=== PATIENT | male | born 1955 ===

== ENCOUNTER → 2020-09-03 10:47 | Outpatient (BNVA) | payer MEDICARE, MEDICAID, SELFPAY | PROVIDERS: Visit Provider Urology | DX: R97.20 Elevated prostate specific antigen [PSA] (principal); E29.1 Testicular hypofunction; N48.6 Induration penis plastica; N52.9 Male erectile dysfunction, unspecified; N40.1 Benign prostatic hyperplasia with lower urinary tract symptoms; N13.8 Other obstructive and reflux uropathy; Z88.6 Allergy status to analgesic agent; Z88.5 Allergy status to narcotic agent; Z87.891 Personal history of nicotine dependence; Z12.5 Encounter for screening for malignant neoplasm of prostate | CPT/HCPCS: Q3014 ==

== ENCOUNTER → 2021-03-06 10:21 | Outpatient (BNVA) | payer MEDICARE, MEDICAID, SELFPAY | PROVIDERS: Visit Provider Urology | DX: N48.6 Induration penis plastica (principal); N52.9 Male erectile dysfunction, unspecified; R97.20 Elevated prostate specific antigen [PSA] | CPT/HCPCS: Q3014 ==

== ENCOUNTER → 2021-09-04 08:30 | Outpatient (BNVA) | payer MEDICARE, MEDICAID, SELFPAY | PROVIDERS: Visit Provider Urology | DX: Z13.89 Encounter for screening for other disorder (principal) | CPT/HCPCS: Q3014 ==

== ENCOUNTER 2021-10-02 07:28 | Outpatient (REF) | payer MEDICARE, MEDICAID, SELFPAY ==
[2021-10-02 07:58] VITALS: BP 138/84; PULSE 71; RESP 16; TEMP 36.2; O2SAT 98; BMI 30.1
--- NOTE | 2021-10-02 08:21 | W.PM.OPN ---
Operative Note Operative Note Date of Service: 10/02/21 Narrative: Preoperative diagnosis: Elevated PSA Postoperative diagnosis: Elevated PSA Procedure: 1. transrectal ultrasound measurement of prostate 2. transrectal ultrasound-guided pudendal nerve block 3. transrectal ultrasound-guided prostate biopsy 12 core Surgeon: Dr. Vincenzo Khan Anesthetic: Local Indications for procedure: Elevated PSA - 4.9 on finasteride Procedure: After informed consent was verified, the patient was brought into the procedure area and lay left-hand side down on the table. Patient identity confirmed. Perioperative antibiotics confirmed. Iodine 10cc with Gel was placed per rectum Ultrasound probe was placed per rectum The prostate was measured in 3 dimensions Total volume equals 25 gm There were no cystic structures and no calcifications noted and the prostate was homogeneous in nature A ultrasound-guided pudendal nerve block was performed using 10 cc of 1% lidocaine. 8 cc was placed at the base and 2 cc of the apex. A 12 core biopsy was performed with 6 cores each side. Two cores were taken at the apex, mid and base. Cores were spaced between lateral and medial. He tolerated the procedure well. Was able to ambulate to bathroom after 5 minutes. Printed instructions regarding antibiotic use and common side effects such as low-grade temperature and bleeding were given Pathology: 12 core prostate biopsy.
[2021-10-02 08:30] VITALS: BP 158/72; PULSE 70; RESP 16; O2SAT 98
== END 2021-10-02 07:29 | disposition home or self-care (01) ==
LOC: HO.MS 07:28
PROVIDERS: PCP Internal Medicine; Visit Provider Urology
PROC: (CPT 55700; principal; 2021-10-02 08:00)
DX: C61 Malignant neoplasm of prostate (principal); R97.20 Elevated prostate specific antigen [PSA]
CPT/HCPCS: 55700; 76942; 88305; 88344

== ENCOUNTER → 2021-10-09 10:40 | Outpatient (BNVA) | payer MEDICARE, MEDICAID, SELFPAY | PROVIDERS: PCP Internal Medicine; Visit Provider Urology | DX: C61 Malignant neoplasm of prostate (principal) | CPT/HCPCS: Q3014 ==

== ENCOUNTER → 2021-11-05 12:57 | Outpatient (BNVA) | payer MEDICARE, MEDICAID, SELFPAY | PROVIDERS: PCP Internal Medicine; Visit Provider Urology | DX: C61 Malignant neoplasm of prostate (principal); R39.15 Urgency of urination; N52.9 Male erectile dysfunction, unspecified; N48.6 Induration penis plastica | CPT/HCPCS: 99212 ==

== ENCOUNTER → 2021-11-25 08:15 | Outpatient (BNVA) | payer MEDICARE, MEDICAID, SELFPAY | PROVIDERS: PCP Internal Medicine; Visit Provider Urology | DX: C61 Malignant neoplasm of prostate (principal) | CPT/HCPCS: Q3014 ==

== ENCOUNTER → 2022-01-14 12:05 | Outpatient (BNVA) | payer MEDICARE, MEDICAID, SELFPAY | PROVIDERS: PCP Internal Medicine; Visit Provider Urology | DX: C61 Malignant neoplasm of prostate (principal); N52.9 Male erectile dysfunction, unspecified | CPT/HCPCS: Q3014 ==

== ENCOUNTER → 2022-06-30 15:01 | Outpatient (BNVA) | payer MEDICARE, MEDICAID, SELFPAY | PROVIDERS: PCP Internal Medicine; Visit Provider Urology | DX: C61 Malignant neoplasm of prostate (principal); N52.9 Male erectile dysfunction, unspecified; N48.6 Induration penis plastica | CPT/HCPCS: 99212 ==

== ENCOUNTER 2022-09-25 12:13 | Outpatient (REF) | payer MEDICARE, MEDICAID, SELFPAY | END 2022-09-25 12:14 | disposition home or self-care (01) | LOC: HO.LAB 12:13 | PROVIDERS: PCP Internal Medicine; Visit Provider Urology | DX: C61 Malignant neoplasm of prostate (principal) | CPT/HCPCS: 36415; 84153 ==

== ENCOUNTER 2022-10-02 10:43 | Outpatient (AMB) | payer MEDICARE, MEDICAID, SELFPAY ==
--- NOTE | 2022-10-02 11:22 | A.OFFVIS_ITS ---
Intake Intake Visit Reasons: 3M PSA(TNP)Discuss Error in psa Intake Note: Patient is present for Follow Up Urology Med: Sildenafil Antibiotic Allergy: None Blood Thinner: None Allergies acetaminophen [From Percocet] Allergy (Mild, Verified 02/02/23 08:27) BURNING IN KNEES/THIGHS oxycodone [From Percocet] Allergy (Mild, Verified 02/02/23 08:27) BURNING IN KNEES/THIGHS HPI HPI Comments History of Present Illness Details Paul Doan is a very pleasant male. He is a patient of Dr. Butler. He is seen for the following urologic conditions - Prostate Cancer - Peyronie's disease - erectile dysfunction Three month PSA follow-up Control urination PSA 09/20 TNP Prostate cancer intermediate risk moderate volume disease 09/19 - RALP 04/21 pT2N0 Robotic prostatectomy 04/21 Dr. Garay [facility] Pathology T2 N0 - [place] 3+4, ECG negative Diagnosed by Dr. Khan 09/19 Prostate biopsy for PSA 4.9 on finasteride Histologic type:??Prostatic acinar adenocarcinoma? Histologic grade:??3 + 3 = 6 (Parts C, D, E, F, G, and H), 3 + 4 = 7 (Part L), and 4 + 3 = 7 (Part J). ? [place] score: (list separately for each core if different) ? % of pattern 4:??90% (Part J); 40% (Part L) Tumor quantitation: Number cores positive:??8 Total number of cores:??12 % of tissue involved:??60% (discontinuously; Part C), 20% (discontinuously, Part D), 70% (Part E), 50% (Part F), less than 5% (Part G), 5% (Part H), 30% (Parts J, L)? Periprostatic fat invasion:??Not identified Seminal vesicle invasion:??Not identified Perineural invasion:??Not identified Lymphovascular invasion:??Not identified MRI 11/19 right apical lesion PI-RADS 4 12 mm - no evidence of extracapsular extension, 26gm Erectile dysfunction: Responds to viagra. Symptoms have been present for/since years ago. Medications include(s) Viagra 100 mg which he splits in 2. Current symptoms include trouble sustaining an erection, trouble getting an erection. Also notes he has tiredness with lethargy and lack of strength.. Severity of the symptoms is moderate. Peyronie's Disease: The patient presents for followup up evaluation for penile disorder. Primary complaint is penile curvature, ventrally, to the left, Peyronie's disease - resolved with AVE therapy. The problem has been present 2016 resolved by [address] At this time he experiences partial erections sufficient for penetrative intercourse. [place] has is unaffected. Associated symptoms include penile pain No Prior management includes oral medication, vacuum protocol. Associated conditions history of penile trauma No CAD No diabetes No erectile dysfunction Yes hypertension No peripheral vascular disease No Investigation results penile ultrasound - 10/13 consistent with possible fibrosis at base of right-sided penis PFS Medical History Benign prostatic hyperplasia without lower urinary tract symptoms Elevated PSA Low testosterone Peyronie's disease Testicular failure Surgical History H/O laminectomy History of surgery of liver Family History Father No problems noted. Mother No problems noted. Review of Systems Const Denies chills and Denies fever(s) Card Reports no additional complaints and Denies syncope Resp Denies cough GI Denies abdominal pain and Denies heartburn Reports as per HPI and Denies change in libido Neuro Denies syncope Psych Denies change in libido Endo Denies change in libido Physical Exam Const General: cooperative, healthy appearing, comfortable and no acute distress Orientation/consciousness: patient oriented x3 HEENT Face and sinus: Yes normal facial exam Mouth: moist mucous membranes Neck Neck: Yes normal visual inspection, Yes full ROM and Yes trachea midline Chest Chest palpation & inspection: normal inspection of the chest Resp Effort & Inspection: normal respiratory effort, able to speak in complete sentences and no respiratory distress GI Inspection: Yes normal to inspection Back/Spine/Pelvis Cervical Spine: normal cervical lordosis Thoracic/Lumbar Spine: thoracic and lumbar spine normal to inspection Skin General skin exam: no rashes or lesions noted Neuro General: patient oriented x3, gait normal, tone normal and moves all extremities Extrem General: Yes normal to inspection and Yes capillary refill normal Assessment & Plan Assessment & Plan (1) Prostate cancer: Comment: 09/19 biopsy with multiple core group 3, 04/21 RALP 3+4 JAIME - Code(s): C61 - Malignant neoplasm of prostate Plan Four month follow-up PSA Orders: Orders Prostate Specific Antigen 4 Months C61 - Malignant neoplasm of prostate Patient Instructions: Imaging studies, laboratory and physical exam results were discussed and reviewed in detail. No major barriers to patient understanding were identified. An opportunity to ask questions regarding the treatment plan was provided. All questions were answered. The patient expressed understanding and agreement with the above treatment plan. The patient is aware they should contact our office by phone for worsening of their current condition or the appearance of new urologic symptoms. Compliance is encouraged with any medications and followup testing that is ordered. It is a privilege to participate in the urologic care of your patient. If you have any questions or concerns regarding treatment for the above conditions, or other urologic issues, please do not hesitate to contact me. The office telephone contact is [phone]. This note is constructed using voice recognition software. While every effort has been made to ensure accuracy ocean [employer] intermediary errors may have been included. Yours sincerely, Dr Vincenzo Khan MD, [facility] - Urology Providers of Expert, Compassionate Care for the Genitourinary System Coding Level of Care Code Est Pt Level 3 (99632) Diagnoses Prostate cancer C61
== END 2022-10-02 11:43 | disposition home or self-care (01) ==
LOC: HO.HUSH 10:43
PROVIDERS: PCP Internal Medicine; Visit Provider Urology
DX: C61 Malignant neoplasm of prostate (principal)
CPT/HCPCS: 99213

== ENCOUNTER → 2022-10-02 10:43 | Outpatient (BNVA) | payer MEDICARE, MEDICAID, SELFPAY | PROVIDERS: PCP Internal Medicine; Visit Provider Urology | DX: C61 Malignant neoplasm of prostate (principal) | CPT/HCPCS: 99212 ==

== ENCOUNTER 2023-01-20 10:50 | Outpatient (REF) | payer MEDICARE, MEDICAID, SELFPAY ==
[2023-01-20 12:56] LABS: Prostate Specific Antigen < 0.10 ng/mL (<0.05-4.0)
== END 2023-01-20 10:51 | disposition home or self-care (01) ==
LOC: HO.LAB 10:50
PROVIDERS: PCP Internal Medicine; Visit Provider Urology
DX: Z12.5 Encounter for screening for malignant neoplasm of prostate (principal); C61 Malignant neoplasm of prostate
CPT/HCPCS: 36415; 84153

== ENCOUNTER 2023-02-02 08:24 | Outpatient (AMB) | payer MEDICARE, MEDICAID, SELFPAY ==
--- NOTE | 2023-02-02 08:25 | A.OFFVIS_ITS ---
Intake Intake Visit Reasons: PSA Follow Up(set) Intake Note: Patient is present for Telephone PSA Urology Med: Sildenafil Antibiotic Allergy: None Blood Thinner: None Pharmacy: [facility] Allergies acetaminophen [From Percocet] Allergy (Mild, Verified 02/02/23 08:27) BURNING IN KNEES/THIGHS oxycodone [From Percocet] Allergy (Mild, Verified 02/02/23 08:27) BURNING IN KNEES/THIGHS Medication List - Last Reconciled 02/02/23 by Vincenzo Khan MD amlodipine 5 mg PO DAILY dorzolamide-timolol 22.3-6.8 mg/mL mL ophthalmic (eye) sildenafil 100 mg PO DAILY PRN 30 days sildenafil (pulm.hypertension) 0 mg PO HPI HPI Comments History of Present Illness Details Paul Doan is a very pleasant male. He is a patient of Dr. Butler. He is seen for the following urologic conditions - Prostate Cancer - Peyronie's disease - erectile dysfunction Telemedicine Evaluation 15 min Consultation [employer] attempted Three month PSA follow-up PSA 01/20 <0.1 Continue 3 month follow-up for 2 years Prostate cancer intermediate risk moderate volume disease 09/19 - RALP 04/21 pT2N0 Robotic prostatectomy 04/21 Dr. Garay [facility] Pathology T2 N0 - [place] 3+4, ECG negative Diagnosed by Dr. Khan 09/19 Prostate biopsy for PSA 4.9 on finasteride Histologic type:??Prostatic acinar adenocarcinoma? Histologic grade:??3 + 3 = 6 (Parts C, D, E, F, G, and H), 3 + 4 = 7 (Part L), and 4 + 3 = 7 (Part J). [place] score: (list separately for each core if different), % of pattern 4:??90% (Part J); 40% (Part L) Tumor quantitation: Number cores positive:??8, Total number of cores:??12 % of tissue involved:??60% (discontinuously; Part C), 20% (discontinuously, Part D), 70% (Part E), 50% (Part F), less than 5% (Part G), 5% (Part H), 30% (Parts J, L)? Periprostatic fat invasion:??Not identified Seminal vesicle invasion:??Not identified Perineural invasion:??Not identified Lymphovascular invasion:??Not identified MRI 11/19 right apical lesion PI-RADS 4 12 mm - no evidence of extracapsular extension, 26gm Erectile dysfunction: Responds to viagra. Symptoms have been present for/since years ago. Medications include(s) Viagra 100 mg which he splits in 2. Current symptoms include trouble sustaining an erection, trouble getting an erection. Also notes he has tiredness with lethargy and lack of strength.. Severity of the symptoms is moderate. Peyronie's Disease: The patient presents for followup up evaluation for penile disorder. Primary complaint is penile curvature, ventrally, to the left, Peyronie's disease - resolved with AVE therapy. The problem has been present 2015 resolved by [address] At this time he experiences partial erections sufficient for penetrative intercourse. [place] has is unaffected. Associated symptoms include penile pain No Prior management includes oral medication, vacuum protocol. Associated conditions history of penile trauma No CAD No diabetes No erectile dysfunction Yes hypertension No peripheral vascular disease No Investigation results penile ultrasound - 10/13 consistent with possible fibrosis at base of right-sided penis [facility] Medical History Benign prostatic hyperplasia without lower urinary tract symptoms Elevated PSA Low testosterone Peyronie's disease Testicular failure Surgical History H/O laminectomy History of surgery of liver Family History Father No problems noted. Mother No problems noted. Review of Systems Const All systems reviewed & are unremarkable except as noted in HPI and below Reports no additional complaints Resp Reports no additional complaints GI Reports no additional complaints Reports as per HPI Musc Reports no additional complaints Physical Exam Telemedicine evaluation Appropriate responses Regular breathing rate and rhythm HEENT Head: Yes normal to inspection Ears: hearing grossly normal bilaterally Eyes General: appearance normal, both eyes and all related structures Neck Neck: Yes normal visual inspection Chest Chest palpation & inspection: normal inspection of the chest Resp Effort & Inspection: normal respiratory effort and able to speak in complete sentences Assessment & Plan Assessment & Plan (1) Prostate cancer: Comment: 09/19 biopsy with multiple core group 3, 04/21 RALP 3+4 JAIME - Code(s): C61 - Malignant neoplasm of prostate (2) Erectile dysfunction: Code(s): N52.9 - Male erectile dysfunction, unspecified Plan Three month follow-up PSA Orders: Orders Prostate Specific Antigen 3 Months C61 - Malignant neoplasm of prostate Patient Instructions: Imaging studies, laboratory and physical exam results were discussed and reviewed in detail. No major barriers to patient understanding were identified. An opportunity to ask questions regarding the treatment plan was provided. All questions were answered. The patient expressed understanding and agreement with the above treatment plan. The patient is aware they should contact our office by phone for worsening of their current condition or the appearance of new urologic symptoms. Compliance is encouraged with any medications and followup testing that is ordered. It is a privilege to participate in the urologic care of your patient. If you have any questions or concerns regarding treatment for the above conditions, or other urologic issues, please do not hesitate to contact me. The office telephone contact is [phone]. This note is constructed using voice recognition software. While every effort has been made to ensure accuracy manager voice errors may have been included. Yours sincerely, Dr Vincenzo Khan MD, [facility] - Urology Providers of Expert, Compassionate Care for the Genitourinary System Telehealth Telehealth Location of provider rendering services: practice address Location of patient: address on file Patient Identification confirmed using: Name, : Yes Telehealth method: video Patient verbally consented to treatment: Yes Patient verbally consented to billing insurance company: Yes Patient informed of any privacy concerns related to visit: Yes Coding Level of Care Code Tele Est Pt Level 3 (86540) Diagnoses Prostate cancer C61 Erectile dysfunction N52.9
== END 2023-02-02 08:59 | disposition home or self-care (01) ==
LOC: HO.HUSH 08:24
PROVIDERS: PCP Internal Medicine; Visit Provider Urology
DX: C61 Malignant neoplasm of prostate (principal); N52.9 Male erectile dysfunction, unspecified
CPT/HCPCS: 99213

== ENCOUNTER → 2023-02-02 08:24 | Outpatient (BNVA) | payer MEDICARE, MEDICAID, SELFPAY | PROVIDERS: PCP Internal Medicine; Visit Provider Urology ==

== ENCOUNTER 2023-06-09 10:54 | Outpatient (REF) | payer MEDICARE, MEDICAID, SELFPAY ==
[2023-06-09 13:18] LABS: Prostate Specific Antigen < 0.10 ng/mL (<0.05-4.0)
== END 2023-06-09 10:55 | disposition home or self-care (01) ==
LOC: HO.LAB 10:54
PROVIDERS: PCP Internal Medicine; Visit Provider Urology
DX: C61 Malignant neoplasm of prostate (principal); Z12.5 Encounter for screening for malignant neoplasm of prostate
CPT/HCPCS: 36415; 84153

== ENCOUNTER 2023-07-02 13:40 | Outpatient (AMB) | payer MEDICARE, MEDICAID, SELFPAY ==
--- NOTE | 2023-07-02 14:04 | MHC.OFFVIS ---
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 He is a patient of Dr. Butler. He is seen for the following urologic conditions - Prostate Cancer - Peyronie's disease - erectile dysfunction Prostate cancer surveillance Three month PSA follow-up PSA 01/20 <0.1, 05/22 <0.1 Continue 3 month follow-up for 2 years Ongoing headache with oral PDE5. Information given regarding vacuum pump Prostate cancer intermediate risk moderate volume disease 09/19 - RALP 04/21 pT2N0 grade group 3 Robotic prostatectomy 04/21 Dr. Garay [facility] Pathology T2 N0 - [place] 3+4, ECG negative Diagnosed by Dr. Khan 09/19 Prostate biopsy for PSA 4.9 on finasteride Histologic type:??Prostatic acinar adenocarcinoma? Histologic grade:??3 + 3 = 6 (Parts C, D, E, F, G, and H), 3 + 4 = 7 (Part L), and 4 + 3 = 7 (Part J). [place] score: (list separately for each core if different), % of pattern 4:??90% (Part J); 40% (Part L) Tumor quantitation: Number cores positive:??8, Total number of cores:??12 % of tissue involved:??60% (discontinuously; Part C), 20% (discontinuously, Part D), 70% (Part E), 50% (Part F), less than 5% (Part G), 5% (Part H), 30% (Parts J, L)? Periprostatic fat invasion:??Not identified Seminal vesicle invasion:??Not identified Perineural invasion:??Not identified Lymphovascular invasion:??Not identified MRI 11/19 right apical lesion PI-RADS 4 12 mm - no evidence of extracapsular extension, 26gm Erectile dysfunction: Responds to viagra. Symptoms have been present for/since years ago. Medications include(s) Viagra 100 mg which he splits in 2. Current symptoms include trouble sustaining an erection, trouble getting an erection. Also notes he has tiredness with lethargy and lack of strength.. Severity of the symptoms is moderate. Had headache with both Cialis and Viagra Peyronie's Disease: The patient presents for followup up evaluation for penile disorder. Primary complaint is penile curvature, ventrally, to the left, Peyronie's disease - resolved with AVE therapy. The problem has been present 2015 resolved by [address] At this time he experiences partial erections sufficient for penetrative intercourse. [place] has is unaffected. Associated symptoms include penile pain No Prior management includes oral medication, vacuum protocol. Associated conditions history of penile trauma No CAD No diabetes No erectile dysfunction Yes hypertension No peripheral vascular disease No Investigation results penile ultrasound - 10/13 consistent with possible fibrosis at base of right-sided penis PFSH Medical History Benign prostatic hyperplasia without lower urinary tract symptoms Elevated PSA Low testosterone Peyronie's disease Testicular failure Surgical History H/O laminectomy History of surgery of liver Family History Father No problems noted. Mother No problems noted. Review of Systems Const Denies chills and Denies fever(s) Card Reports no additional complaints and Denies syncope Resp Denies cough GI Denies abdominal pain and Denies heartburn Reports as per HPI and Denies change in libido Neuro Denies syncope Psych Denies change in libido Endo Denies change in libido Physical Exam Const General: cooperative, healthy appearing, comfortable and no acute distress Orientation/consciousness: patient oriented x3 HEENT Face and sinus: Yes normal facial exam Mouth: moist mucous membranes Neck Neck: Yes normal visual inspection, Yes full ROM and Yes trachea midline Chest Chest palpation & inspection: normal inspection of the chest Resp Effort & Inspection: normal respiratory effort, able to speak in complete sentences and no respiratory distress GI Inspection: Yes normal to inspection Back/Spine/Pelvis Cervical Spine: normal cervical lordosis Thoracic/Lumbar Spine: thoracic and lumbar spine normal to inspection Skin General skin exam: no rashes or lesions noted Neuro General: patient oriented x3, gait normal, tone normal and moves all extremities Extrem General: Yes normal to inspection and Yes capillary refill normal Assessment & Plan Assessment & Plan (1) Peyronie's disease: Code(s): N48.6 - Induration penis plastica (2) Prostate cancer: Comment: 09/19 biopsy with multiple core group 3, 04/21 RALP 3+4 JAIME - Code(s): C61 - Malignant neoplasm of prostate (3) Erectile dysfunction: Code(s): N52.9 - Male erectile dysfunction, unspecified Plan Three-month follow-up PSA tele Orders: Orders Prostate Specific Antigen 3 Months C61 - Malignant neoplasm of prostate Patient Instructions: Imaging studies, laboratory and physical exam results were discussed and reviewed in detail. No major barriers to patient understanding were identified. An opportunity to ask questions regarding the treatment plan was provided. All questions were answered. The patient expressed understanding and agreement with the above treatment plan. The patient is aware they should contact our office by phone for worsening of their current condition or the appearance of new urologic symptoms. Compliance is encouraged with any medications and followup testing that is ordered. It is a privilege to participate in the urologic care of your patient. If you have any questions or concerns regarding treatment for the above conditions, or other urologic issues, please do not hesitate to contact me. The office telephone contact is [phone]. This note is constructed using voice recognition software. While every effort has been made to ensure accuracy professor of [employer] studies errors may have been included. Yours sincerely, Dr Vincenzo Khan MD, [facility] - Urology Providers of Expert, Compassionate Care for the Genitourinary System Coding Level of Care Code Est Pt Level 4 (94007) Diagnoses Peyronie's disease N48.6 Prostate cancer C61 Erectile dysfunction N52.9
== END 2023-07-02 14:15 | disposition home or self-care (01) ==
PROVIDERS: PCP Internal Medicine; Visit Provider Urology
DX: N48.6 Induration penis plastica (principal); C61 Malignant neoplasm of prostate; N52.9 Male erectile dysfunction, unspecified
CPT/HCPCS: 99213

== ENCOUNTER → 2023-07-02 13:40 | Outpatient (BNVA) | payer MEDICARE, MEDICAID, SELFPAY | PROVIDERS: PCP Internal Medicine; Visit Provider Urology | DX: N48.6 Induration penis plastica (principal); N52.9 Male erectile dysfunction, unspecified; C61 Malignant neoplasm of prostate | CPT/HCPCS: 99212 ==

== ENCOUNTER 2023-09-15 10:39 | Outpatient (REF) | payer MEDICARE, MEDICAID, SELFPAY ==
[2023-09-15 12:07] LABS: Prostate Specific Antigen < 0.10 ng/mL (<0.05-4.0)
== END 2023-09-15 10:40 | disposition home or self-care (01) ==
LOC: HO.LAB 10:39
PROVIDERS: PCP Internal Medicine; Visit Provider Urology
DX: Z12.5 Encounter for screening for malignant neoplasm of prostate (principal); C61 Malignant neoplasm of prostate
CPT/HCPCS: 36415; 84153

== ENCOUNTER 2023-09-30 11:21 | Outpatient (AMB) | payer MEDICARE, MEDICAID, SELFPAY ==
--- NOTE | 2023-09-30 11:22 | A.OFFVIS_ITS ---
Intake Visit Reasons: 3m/PSA(set) Intake Note: Patient is Present for Telephone Follow Up For Urology Med: Sildenafil Antibiotic Allergy: none Blood Thinner:none Allergies acetaminophen [From Percocet] Allergy (Mild, Verified 07/02/23 14:10) BURNING IN KNEES/THIGHS oxycodone [From Percocet] Allergy (Mild, Verified 07/02/23 14:10) BURNING IN KNEES/THIGHS HPI Comments Details: Paul Doan is a very pleasant male. He is a patient of Dr. Butler. He is seen for the following urologic conditions - Prostate Cancer - Peyronie's disease - erectile dysfunction Prostate cancer surveillance - long-term relationship with patient based on ongoing care of this serious condition Telemedicine Evaluation 15 min Consultation Dodonation Reji Video attempted Discussed PSA results Has not been able to get vacuum pump Will call company for him when we see him in 3 months Three month PSA follow-up PSA 01/20 <0.1, 05/22 <0.1, 09/21 <0.1 Continue 3 month follow-up for 2 years Prostate cancer intermediate risk moderate volume disease 09/19 - RALP 04/21 pT2N0 grade group 3 Robotic prostatectomy 04/21 Dr. Garay [facility] Pathology T2 N0 - Dorie 3+4, ECG negative Diagnosed by Dr. Khan 09/19 Prostate biopsy for PSA 4.9 on finasteride Histologic type:??Prostatic acinar adenocarcinoma? Histologic grade:??3 + 3 = 6 (Parts C, D, E, F, G, and H), 3 + 4 = 7 (Part L), and 4 + 3 = 7 (Part J). [place] score: (list separately for each core if different), % of pattern 4:??90% (Part J); 40% (Part L) Tumor quantitation: Number cores positive:??8, Total number of cores:??12 % of tissue involved:??60% (discontinuously; Part C), 20% (discontinuously, Part D), 70% (Part E), 50% (Part F), less than 5% (Part G), 5% (Part H), 30% (Parts J, L)? Periprostatic fat invasion:??Not identified Seminal vesicle invasion:??Not identified Perineural invasion:??Not identified Lymphovascular invasion:??Not identified MRI 11/19 right apical lesion PI-RADS 4 12 mm - no evidence of extracapsular extension, 26gm Erectile dysfunction: Responds to viagra. Symptoms have been present for/since years ago. Medications include(s) Viagra 100 mg which he splits in 2. Current symptoms include trouble sustaining an erection, trouble getting an erection. Also notes he has tiredness with lethargy and lack of strength.. Severity of the symptoms is moderate. Had headache with both Cialis and Viagra Peyronie's Disease: The patient presents for followup up evaluation for penile disorder. Primary complaint is penile curvature, ventrally, to the left, Peyronie's disease - resolved with AVE therapy. The problem has been present 2015 resolved by [address] At this time he experiences partial erections sufficient for penetrative intercourse. [place] has is unaffected. Associated symptoms include penile pain No Prior management includes oral medication, vacuum protocol. Associated conditions history of penile trauma No CAD No diabetes No erectile dysfunction Yes hypertension No peripheral vascular disease No Investigation results penile ultrasound - 10/13 consistent with possible fibrosis at base of right-sided penis [facility] Medical History Benign prostatic hyperplasia without lower urinary tract symptoms Peyronie's disease Elevated PSA Testicular failure Low testosterone Surgical History History of surgery of liver H/O laminectomy Family History Father No problems noted. Mother No problems noted. Review of Systems Const All systems reviewed & are unremarkable except as noted in HPI and below Reports no additional complaints Resp Reports no additional complaints GI Reports no additional complaints Reports as per HPI Musc Reports no additional complaints Physical Exam Telemedicine evaluation Appropriate responses Regular breathing rate and rhythm HEENT Head: Yes normal to inspection Ears: hearing grossly normal bilaterally Eyes General: appearance normal, both eyes and all related structures Neck Neck: Yes normal visual inspection Chest Chest palpation & inspection: normal inspection of the chest Resp Effort & Inspection: normal respiratory effort and able to speak in complete sentences Telehealth Telehealth Location of provider rendering services: practice address Location of patient: address on file Patient Identification confirmed using: Name, : Yes Telehealth method: video Patient verbally consented to treatment: Yes Patient verbally consented to billing insurance company: Yes Patient informed of any privacy concerns related to visit: Yes Assessment & Plan Assessment & Plan (1) Prostate cancer: Comment: 09/19 biopsy with multiple core group 3, 04/21 RALP 3+4 JAIME - Code(s): C61 - Malignant neoplasm of prostate Category: Medical (2) Erectile dysfunction: Code(s): N52.9 - Male erectile dysfunction, unspecified Category: Medical Plan Three month follow-up PSA Orders: Orders Prostate Specific Antigen 3 Months C61 - Malignant neoplasm of prostate Patient Instructions: Imaging studies, laboratory and physical exam results were discussed and reviewed in detail. No major barriers to patient understanding were identified. An opportunity to ask questions regarding the treatment plan was provided. All questions were answered. The patient expressed understanding and agreement with the above treatment plan. The patient is aware they should contact our office by phone for worsening of their current condition or the appearance of new urologic symptoms. Compliance is encouraged with any medications and followup testing that is ordered. It is a privilege to participate in the urologic care of your patient. If you have any questions or concerns regarding treatment for the above conditions, or other urologic issues, please do not hesitate to contact me. The office telephone contact is [phone]. This note is constructed using voice recognition software. While every effort has been made to ensure accuracy founder and ceo errors may have been included. Yours sincerely, Dr Vincenzo Khan MD, [facility] - Urology Providers of Expert, Compassionate Care for the Genitourinary System Coding Level of Care Code Tele Est Pt Level 3 (45124) Complex EM visit Add On G2211 Diagnoses Prostate cancer C61 Erectile dysfunction N52.9
== END 2023-09-30 11:40 | disposition home or self-care (01) ==
LOC: HO.HUSH 11:21
PROVIDERS: PCP Internal Medicine; Visit Provider Urology
DX: C61 Malignant neoplasm of prostate (principal); N52.9 Male erectile dysfunction, unspecified
CPT/HCPCS: 99213; G2211

== ENCOUNTER → 2023-09-30 11:21 | Outpatient (BNVA) | payer MEDICARE, MEDICAID, SELFPAY | PROVIDERS: PCP Internal Medicine; Visit Provider Urology ==

== ENCOUNTER 2023-12-22 08:54 | Outpatient (REF) | payer MEDICARE, MEDICAID, SELFPAY ==
[2023-12-22 10:18] LABS: Prostate Specific Antigen < 0.10 ng/mL (<0.05-4.0)
== END 2023-12-22 08:55 | disposition home or self-care (01) ==
LOC: HO.LAB 08:54
PROVIDERS: Visit Provider Urology
DX: C61 Malignant neoplasm of prostate (principal); Z12.5 Encounter for screening for malignant neoplasm of prostate
CPT/HCPCS: 36415; 84153

== ENCOUNTER 2023-12-31 11:29 | Outpatient (AMB) | payer MEDICARE, MEDICAID, SELFPAY ==
--- NOTE | 2023-12-31 11:32 | A.OFFVIS_ITS ---
Intake Visit Reasons: 3M Follow Up-PSA(set) Intake Note: Patient is Present for Follow Up Urology Medication: Sildenafil Antibiotic Allergies: None Blood Thinners: None Shrimp Peeling Machine Tender Required: No Allergies acetaminophen [From Percocet] Allergy (Mild, Verified 12/31/23 11:38) BURNING IN KNEES/THIGHS oxycodone [From Percocet] Allergy (Mild, Verified 12/31/23 11:38) BURNING IN KNEES/THIGHS HPI Comments Details: Paul Doan is a very pleasant male. He is a patient of Dr. Butler. He is seen for the following urologic conditions - Prostate Cancer - Peyronie's disease - erectile dysfunction Prostate cancer surveillance - long-term relationship with patient based on ongoing care of this serious condition Discussed PSA results Doing well Good urinary control Discussed penile vacuum pump Demonstration Model Used Printed information provided Three month PSA follow-up PSA 01/20 <0.1, 05/22 <0.1, 09/21 <0.1, 12/21 <0.1 Can move to 4 month follow-up Prostate cancer intermediate risk moderate volume disease 09/19 - RALP 04/21 pT2N0 grade group 3 Robotic prostatectomy 04/21 Dr. Garay [facility] Pathology T2 N0 - Dorie 3+4, ECG negative Diagnosed by Dr. Khan 09/19 Prostate biopsy for PSA 4.9 on finasteride Histologic type:??Prostatic acinar adenocarcinoma? Histologic grade:??3 + 3 = 6 (Parts C, D, E, F, G, and H), 3 + 4 = 7 (Part L), and 4 + 3 = 7 (Part J). Dorie score: (list separately for each core if different), % of pattern 4:??90% (Part J); 40% (Part L) Tumor quantitation: Number cores positive:??8, Total number of cores:??12 % of tissue involved:??60% (discontinuously; Part C), 20% (discontinuously, Part D), 70% (Part E), 50% (Part F), less than 5% (Part G), 5% (Part H), 30% (Parts J, L)? Periprostatic fat invasion:??Not identified Seminal vesicle invasion:??Not identified Perineural invasion:??Not identified Lymphovascular invasion:??Not identified MRI 11/19 right apical lesion PI-RADS 4 12 mm - no evidence of extracapsular extension, 26gm Erectile dysfunction: Responds to viagra. Symptoms have been present for/since years ago. Medications include(s) Viagra 100 mg which he splits in 2. Current symptoms include trouble sustaining an erection, trouble getting an erection. Also notes he has tiredness with lethargy and lack of strength.. Severity of the symptoms is moderate. Had headache with both Cialis and Viagra Peyronie's Disease: The patient presents for followup up evaluation for penile disorder. Primary complaint is penile curvature, ventrally, to the left, Peyronie's disease - resolved with AVE therapy. The problem has been present 2015 resolved by [address] At this time he experiences partial erections sufficient for penetrative intercourse. [place] has is unaffected. Associated symptoms include penile pain No Prior management includes oral medication, vacuum protocol. Associated conditions history of penile trauma No CAD No diabetes No erectile dysfunction Yes hypertension No peripheral vascular disease No Investigation results penile ultrasound - 10/13 consistent with possible fibrosis at base of right-sided penis [facility] Medical History Benign prostatic hyperplasia without lower urinary tract symptoms Peyronie's disease Elevated PSA Testicular failure Low testosterone Surgical History History of surgery of liver H/O laminectomy Family History Father No problems noted. Mother No problems noted. Review of Systems Const Denies chills and Denies fever(s) Card Reports no additional complaints and Denies syncope Resp Denies cough GI Denies abdominal pain and Denies heartburn Reports as per HPI and Denies change in libido Neuro Denies syncope Psych Denies change in libido Endo Denies change in libido Physical Exam Const General: cooperative, healthy appearing, comfortable and no acute distress Orientation/consciousness: patient oriented x3 HEENT Face and sinus: Yes normal facial exam Mouth: moist mucous membranes Neck Neck: Yes normal visual inspection, Yes full ROM and Yes trachea midline Chest Chest palpation & inspection: normal inspection of the chest Resp Effort & Inspection: normal respiratory effort, able to speak in complete sentences and no respiratory distress GI Inspection: Yes normal to inspection Back/Spine/Pelvis Cervical Spine: normal cervical lordosis Thoracic/Lumbar Spine: thoracic and lumbar spine normal to inspection Skin General skin exam: no rashes or lesions noted Neuro General: patient oriented x3, gait normal, tone normal and moves all extremities Extrem General: Yes normal to inspection and Yes capillary refill normal Assessment & Plan Assessment & Plan (1) Prostate cancer: Comment: 09/19 biopsy with multiple core group 3, 04/21 RALP 3+4 JAIME - Code(s): C61 - Malignant neoplasm of prostate Category: Medical (2) Peyronie's disease: Code(s): N48.6 - Induration penis plastica Category: Medical (3) Erectile dysfunction: Code(s): N52.9 - Male erectile dysfunction, unspecified Category: Medical Plan Four month follow-up PSA Orders: Orders Prostate Specific Antigen 4 Months C61 - Malignant neoplasm of prostate Patient Instructions: Imaging studies, laboratory and physical exam results were discussed and reviewed in detail. No major barriers to patient understanding were identified. An opportunity to ask questions regarding the treatment plan was provided. All questions were answered. The patient expressed understanding and agreement with the above treatment plan. The patient is aware they should contact our office by phone for worsening of their current condition or the appearance of new urologic symptoms. Compliance is encouraged with any medications and followup testing that is ordered. It is a privilege to participate in the urologic care of your patient. If you have any questions or concerns regarding treatment for the above conditions, or other urologic issues, please do not hesitate to contact me. The office telephone contact is [phone]. This note is constructed using voice recognition software. While every effort has been made to ensure accuracy high school hvac r instructor errors may have been included. Yours sincerely, Dr Vincenzo Khan MD, [facility] - Urology Providers of Expert, Compassionate Care for the Genitourinary System Coding Level of Care Code Est Pt Level 4 (61572) Diagnoses Prostate cancer C61 Peyronie's disease N48.6 Erectile dysfunction N52.9
== END 2023-12-31 12:07 | disposition home or self-care (01) ==
PROVIDERS: PCP Internal Medicine; Visit Provider Urology
DX: C61 Malignant neoplasm of prostate (principal); N48.6 Induration penis plastica; N52.9 Male erectile dysfunction, unspecified
CPT/HCPCS: 99214

== ENCOUNTER → 2023-12-31 11:29 | Outpatient (BNVA) | payer MEDICARE, MEDICAID, SELFPAY | PROVIDERS: PCP Internal Medicine; Visit Provider Urology | DX: C61 Malignant neoplasm of prostate (principal); N52.9 Male erectile dysfunction, unspecified; N48.6 Induration penis plastica; Z79.899 Other long term (current) drug therapy | CPT/HCPCS: 99212 ==

== ENCOUNTER 2024-05-12 09:39 | Outpatient (REF) | payer MEDICARE, MEDICAID, SELFPAY ==
[2024-05-12 11:20] LABS: Prostate Specific Antigen < 0.10 ng/mL (<0.05-4.0)
== END 2024-05-12 09:40 | disposition home or self-care (01) ==
LOC: HO.LAB 09:39
PROVIDERS: PCP Internal Medicine; Visit Provider Urology
DX: C61 Malignant neoplasm of prostate (principal); Z12.5 Encounter for screening for malignant neoplasm of prostate
CPT/HCPCS: 36415; 84153

== ENCOUNTER 2024-05-18 09:55 | Outpatient (AMB) | payer MEDICARE, MEDICAID, SELFPAY ==
--- NOTE | 2024-05-18 10:00 | MHC.OFFVIS ---
Intake Visit Reasons: 4m/PSA(set) Intake Note: Patient is present for 4M/PSA Urology Medication:SILDENAFIL Antibiotic Allergy:NONE Blood Thinner:NONE Product Safety Technician Required: No Allergies acetaminophen [From Percocet] Allergy (Mild, Verified 05/18/24 10:01) BURNING IN KNEES/THIGHS oxycodone [From Percocet] Allergy (Mild, Verified 05/18/24 10:01) BURNING IN KNEES/THIGHS HPI Comments Details: Paul Doan is a very pleasant male. He is a patient of Dr. Butler. He is seen for the following urologic conditions - Prostate Cancer - Peyronie's disease - erectile dysfunction Prostate cancer surveillance - long-term relationship with patient based on ongoing care of this serious condition Discussed PSA results - maintaining stability Good urinary control Printed information provided regarding penile pumps Recent diagnosis of liver issues Move to six-month interval surveillance PSA 01/20 <0.1, 05/22 <0.1, 09/21 <0.1, 12/21 <0.1, 05/23 <0.1 Prostate cancer intermediate risk moderate volume disease 09/19 - RALP 04/21 pT2N0 grade group 3 Robotic prostatectomy 04/21 Dr. Garay [facility] Pathology T2 N0 - [place] 3+4, ECG negative Diagnosed by Dr. Khan 09/19 Prostate biopsy for PSA 4.9 on finasteride Histologic type:??Prostatic acinar adenocarcinoma? Histologic grade:??3 + 3 = 6 (Parts C, D, E, F, G, and H), 3 + 4 = 7 (Part L), and 4 + 3 = 7 (Part J). Dorie score: (list separately for each core if different), % of pattern 4:??90% (Part J); 40% (Part L) Tumor quantitation: Number cores positive:??8, Total number of cores:??12 % of tissue involved:??60% (discontinuously; Part C), 20% (discontinuously, Part D), 70% (Part E), 50% (Part F), less than 5% (Part G), 5% (Part H), 30% (Parts J, L)? Periprostatic fat invasion:??Not identified Seminal vesicle invasion:??Not identified Perineural invasion:??Not identified Lymphovascular invasion:??Not identified MRI 11/19 right apical lesion PI-RADS 4 12 mm - no evidence of extracapsular extension, 26gm Erectile dysfunction: Responds to viagra. Symptoms have been present for/since years ago. Medications include(s) Viagra 100 mg which he splits in 2. Current symptoms include trouble sustaining an erection, trouble getting an erection. Also notes he has tiredness with lethargy and lack of strength.. Severity of the symptoms is moderate. Had headache with both Cialis and Viagra Peyronie's Disease: The patient presents for followup up evaluation for penile disorder. Primary complaint is penile curvature, ventrally, to the left, Peyronie's disease - resolved with AVE therapy. The problem has been present 2015 resolved by [address] At this time he experiences partial erections sufficient for penetrative intercourse. [place] has is unaffected. Associated symptoms include penile pain No Prior management includes oral medication, vacuum protocol. Associated conditions history of penile trauma No CAD No diabetes No erectile dysfunction Yes hypertension No peripheral vascular disease No Investigation results penile ultrasound - 10/13 consistent with possible fibrosis at base of right-sided penis [facility] Medical History Benign prostatic hyperplasia without lower urinary tract symptoms Peyronie's disease Elevated PSA Testicular failure Low testosterone Surgical History History of surgery of liver H/O laminectomy Family History Father No problems noted. Mother No problems noted. Review of Systems Const Denies chills and Denies fever(s) Card Reports no additional complaints and Denies syncope Resp Denies cough GI Denies abdominal pain and Denies heartburn Reports as per HPI and Denies change in libido Neuro Denies syncope Psych Denies change in libido Endo Denies change in libido Physical Exam Const General: cooperative, healthy appearing, comfortable and no acute distress Orientation/consciousness: patient oriented x3 HEENT Face and sinus: Yes normal facial exam Mouth: moist mucous membranes Neck Neck: Yes normal visual inspection, Yes full ROM and Yes trachea midline Chest Chest palpation & inspection: normal inspection of the chest Resp Effort & Inspection: normal respiratory effort, able to speak in complete sentences and no respiratory distress GI Inspection: Yes normal to inspection Back/Spine/Pelvis Cervical Spine: normal cervical lordosis Thoracic/Lumbar Spine: thoracic and lumbar spine normal to inspection Skin General skin exam: no rashes or lesions noted Neuro General: patient oriented x3, gait normal, tone normal and moves all extremities Extrem General: Yes normal to inspection and Yes capillary refill normal Assessment & Plan Assessment & Plan (1) Peyronie's disease: Code(s): N48.6 - Induration penis plastica Category: Medical (2) Erectile dysfunction: Code(s): N52.9 - Male erectile dysfunction, unspecified Category: Medical Plan Six-month follow-up PSA Orders: Orders Prostate Specific Antigen 6 Months C61 - Malignant neoplasm of prostate Patient Instructions: Imaging studies, laboratory and physical exam results were discussed and reviewed in detail. No major barriers to patient understanding were identified. An opportunity to ask questions regarding the treatment plan was provided. All questions were answered. The patient expressed understanding and agreement with the above treatment plan. The patient is aware they should contact our office by phone for worsening of their current condition or the appearance of new urologic symptoms. Compliance is encouraged with any medications and followup testing that is ordered. It is a privilege to participate in the urologic care of your patient. If you have any questions or concerns regarding treatment for the above conditions, or other urologic issues, please do not hesitate to contact me. The office telephone contact is [phone]. This note is constructed using voice recognition software. While every effort has been made to ensure accuracy puppy sitter errors may have been included. Yours sincerely, Dr Vincenzo Khan MD, [facility] - Urology Providers of Expert, Compassionate Care for the Genitourinary System Coding Level of Care Code Est Pt Level 3 (14156) Diagnoses Peyronie's disease N48.6 Erectile dysfunction N52.9
== END 2024-05-18 10:56 | disposition home or self-care (01) ==
PROVIDERS: PCP Internal Medicine; Visit Provider Urology
DX: N48.6 Induration penis plastica (principal); N52.9 Male erectile dysfunction, unspecified
CPT/HCPCS: 99213

== ENCOUNTER → 2024-05-18 09:55 | Outpatient (BNVA) | payer MEDICARE, MEDICAID, SELFPAY | PROVIDERS: PCP Internal Medicine; Visit Provider Urology | DX: C61 Malignant neoplasm of prostate (principal); N48.6 Induration penis plastica; N52.9 Male erectile dysfunction, unspecified | CPT/HCPCS: 99212 ==

== ENCOUNTER 2024-11-09 08:06 | Outpatient (REF) | payer MEDICARE, MEDICAID, SELFPAY ==
[2024-11-09 09:44] LABS: Prostate Specific Antigen < 0.10 ng/mL (<0.05-4.0)
== END 2024-11-09 08:07 | disposition home or self-care (01) ==
LOC: HO.LAB 08:06
PROVIDERS: PCP Internal Medicine; Visit Provider Urology
DX: Z12.5 Encounter for screening for malignant neoplasm of prostate (principal); C61 Malignant neoplasm of prostate
CPT/HCPCS: 36415; 84153

== ENCOUNTER 2024-11-17 08:38 | Outpatient (AMB) | payer MEDICARE, MEDICAID, SELFPAY ==
--- OUTSIDE RECORDS SUMMARY | 2024-11-17 08:41 | XMS_ITS | Encounter Summary ---
Author Organization [facility] Address [address] [place] [id number] Care Team Providers Care Mva Reactor Operator Name Role Phone Vincenzo Khan MD Primary Care Provider Suzy Parmar RN Unavailable [phone] Shanae Wiggins MD Primary Care Provider Encounter Details Date Type Department Care Team (Late st Contact Info) Description 12/05/2021 Scanned Document [facility] Urologic Surgery [address] [place] [id number] Vincenzo Khan MD [address] [id number] Social History Tobacco Use Types Packs/Day Years Used Date Smoking Tobacco: Never Assessed Sex and Gender Information Value Date Recorded Sex Assigned at Male 12/05/2021 9:40 AM EDT Legal Sex Male 9:37 AM EDT Gender Identity Male 12/05/2021 9:40 AM EDT Sexual Orientation Not on file documented as of this encounter Plan of Treatment Not on file documented as of this encounter Visit Diagnoses Not on filedocumented in this encounter Care Teams Mva Reactor Operator Relationship Specialty Start Date End Date Vincenzo Khan MD 100 [facility] [address] [place] [address] PCP - General Urology 12/05/21 03/23/22 Shanae Wiggins MD [address] [address] PCP - General Internal Medicine 03/24/22 Suzy Parmar RN [address] [place] [id number] Oncology Nurse Navigator 01/09/22 documented as of this encounter
--- NOTE | 2024-11-17 10:17 | MHC.OFFVIS ---
Intake Visit Reasons: 6M PSA Allergies acetaminophen (From Percocet) Allergy (Mild, Verified 05/18/24 10:01) BURNING IN KNEES/THIGHS oxycodone (From Percocet) Allergy (Mild, Verified 05/18/24 10:01) BURNING IN KNEES/THIGHS HPI Comments Details: Paul Doan is a very pleasant male. He is a patient of Dr. Butler. He is seen for the following urologic conditions - Prostate Cancer - Peyronie's disease - erectile dysfunction Telemedicine Evaluation 15 min Consultation Intelligent Apps ([email or web address]) Reji Video Discussed PSA results - maintaining stability Good urinary control Six-month surveillance Primary concern is immunotherapy receiving for liver related issue. PSA 01/20 <0.1, 05/22 <0.1, 09/21 <0.1, 12/21 <0.1, 05/23 <0.1, 11/22 <0.1 Prostate cancer intermediate risk moderate volume disease 09/19 - RALP 04/21 pT2N0 grade group 3 Robotic prostatectomy 04/21 Dr. Garay [facility] Pathology T2 N0 - Dorie 3+4, ECG negative Diagnosed by Dr. Khan 09/19 Prostate biopsy for PSA 4.9 on finasteride Histologic type:??Prostatic acinar adenocarcinoma? Histologic grade:??3 + 3 = 6 (Parts C, D, E, F, G, and H), 3 + 4 = 7 (Part L), and 4 + 3 = 7 (Part J). Gorham score: (list separately for each core if different), % of pattern 4:??90% (Part J); 40% (Part L) Tumor quantitation: Number cores positive:??8, Total number of cores:??12 % of tissue involved:??60% (discontinuously; Part C), 20% (discontinuously, Part D), 70% (Part E), 50% (Part F), less than 5% (Part G), 5% (Part H), 30% (Parts J, L)? Periprostatic fat invasion:??Not identified Seminal vesicle invasion:??Not identified Perineural invasion:??Not identified Lymphovascular invasion:??Not identified MRI 11/19 right apical lesion PI-RADS 4 12 mm - no evidence of extracapsular extension, 26gm Erectile dysfunction: Responds to viagra. Symptoms have been present for/since years ago. Medications include(s) Viagra 100 mg which he splits in 2. Current symptoms include trouble sustaining an erection, trouble getting an erection. Also notes he has tiredness with lethargy and lack of strength.. Severity of the symptoms is moderate. Had headache with both Cialis and Viagra Peyronie's Disease: The patient presents for followup up evaluation for penile disorder. Primary complaint is penile curvature, ventrally, to the left, Peyronie's disease - resolved with AVE therapy. The problem has been present 2015 resolved by 2017 [address] AVE[address] At this time he experiences partial erections sufficient for penetrative intercourse. [place] has is unaffected. Associated symptoms include penile pain No Prior management includes oral medication, vacuum protocol. Associated conditions history of penile trauma No CAD No diabetes No erectile dysfunction Yes hypertension No peripheral vascular disease No Investigation results penile ultrasound - 10/13 consistent with possible fibrosis at base of right-sided penis PFS Medical History Benign prostatic hyperplasia without lower urinary tract symptoms Peyronie's disease Elevated PSA Testicular failure Low testosterone Surgical History History of surgery of liver H/O laminectomy Family History Father No problems noted. Mother No problems noted. Review of Systems Const All systems reviewed & are unremarkable except as noted in HPI and below Reports no additional complaints Resp Reports no additional complaints GI Reports no additional complaints Reports as per HPI Musc Reports no additional complaints Physical Exam Telemedicine evaluation Appropriate responses Regular breathing rate and rhythm HEENT Head: Yes normal to inspection Ears: hearing grossly normal bilaterally Eyes General: appearance normal, both eyes and all related structures Neck Neck: Yes normal visual inspection Chest Chest palpation & inspection: normal inspection of the chest Resp Effort & Inspection: normal respiratory effort and able to speak in complete sentences Telehealth Telehealth [facility]health [facility] Location of provider rendering services: practice address Location of patient: address on file Patient Identification confirmed using: Name, : Yes Telehealth method: video Patient verbally consented to treatment: Yes Patient verbally consented to billing insurance company: Yes Patient informed of any privacy concerns related to visit: Yes Minutes spent on Phone/Video with Pt.: 15 Assessment & Plan Assessment & Plan (1) Prostate cancer: Comment: 09/19 biopsy with multiple core group 3, 04/21 RALP 3+4 JAIME - Code(s): C61 - Malignant neoplasm of prostate Category: Medical (2) Erectile dysfunction: Code(s): N52.9 - Male erectile dysfunction, unspecified Category: Medical Plan Six-month follow-up PSA Orders: Orders Prostate Specific Antigen 6 Months C61 - Malignant neoplasm of prostate Patient Instructions: This note is constructed using voice recognition software. While every effort has been made to ensure accuracy line controller errors may have been included. Imaging studies, laboratory and physical exam results were discussed and reviewed in detail. No major barriers to patient understanding were identified. An opportunity to ask questions regarding the treatment plan was provided. All questions were answered. The patient expressed understanding and agreement with the above treatment plan. The patient is aware they should contact our office by phone for worsening of their current condition or the appearance of new urologic symptoms. Compliance is encouraged with any medications and followup testing that is ordered. It is a privilege to participate in the urologic care of your patient. If you have any questions or concerns regarding treatment for the above conditions, or other urologic issues, please do not hesitate to contact me. The office telephone contact is [phone]. Sincerely, Dr Vincenzo Khan MD, [facility] - Urology Compassionate Specialist Care for the Genitourinary System Coding Level of Care Code Tele Est Pt Level 3 (02716) Complex EM visit Add On G2211 Diagnoses Prostate cancer C61 Erectile dysfunction N52.9
== END 2024-11-17 13:09 | disposition home or self-care (01) ==
LOC: HO.HUSH 08:38
PROVIDERS: PCP Internal Medicine; Visit Provider Urology
DX: C61 Malignant neoplasm of prostate (principal); N52.9 Male erectile dysfunction, unspecified
CPT/HCPCS: 99213; G2211

== ENCOUNTER → 2024-11-17 08:38 | Outpatient (BNVA) | payer MEDICARE, MEDICAID, SELFPAY | PROVIDERS: PCP Internal Medicine; Visit Provider Urology ==